=== PATIENT | male | born 1985 | race Caucasian/White ===

== ENCOUNTER 2020-11-24 20:28 | Inpatient (IN) | payer OTHER ==
[2020-11-24 20:39] VITALS: BMI 25.4
[2020-11-24] MEDS ORDERED: SODIUM CHLORIDE 0.9% 500 ML INFUS.BAG IV ONE (21:15)
[2020-11-24] MEDS ORDERED: morphine CARPU-JECT 4 MG/1 ML DISP.SYRIN IVPUSH ONE (21:15)
[2020-11-24] MEDS ORDERED: morphine SULFATE 4 MG/ML VIAL ONE (21:47)
[2020-11-24 22:02] LABS: BASO % 0.3 % (0-2.0); EOS % 2.3 % (0-4.5); HEMATOCRIT 43.3 % (35.4-49); HEMOGLOBIN 15.1 GM/dL (11.7-16.9); LYMPH % 12.8 % (8-40); MCH 29.8 pg (25.7-33.7); MCHC 34.9 g/dl (32.0-35.9); MEAN CELL VOLUME 85.4 fl (80-96); MEAN PLT VOLUME 6.7 fl (7.5-11.1); MONO % 11.1 % (3.8-10.2); NEUT % 73.5 % (42.8-82.8); PLATELET COUNT 398 K/MM3 (134-434); RBC 5.07 M/mm3 (4.00-5.60); RDW 13.1 % (11.9-15.9); WHITE BLOOD COUNT 10.8 K/mm3 (4.0-10.0)
[2020-11-24 22:23] LABS: POTASSIUM 3.6 mmol/L (3.5-5.1)
[2020-11-24 22:29] LABS: ALBUMIN 2.8 g/dl (3.4-5.0); BLOOD UREA NITROGEN 9.4 mg/dL (7-18); CALCIUM 8.7 mg/dL (8.5-10.1)
[2020-11-24 22:33] LABS: CREATININE 0.7 mg/dL (0.55-1.3)
[2020-11-24 22:34] LABS: BILIRUBIN,TOTAL 0.6 mg/dL (0.2-1); TOT PROT 6.5 g/dl (6.4-8.2)
[2020-11-25] MEDS ORDERED: VANCOMYCIN 1,000 MG in DEXTROSE 5%-WATER - 250 ML IVPB ONE (00:30)
[2020-11-25] MEDS ORDERED: PIPERACILLIN/TAZOB 3.375 GM 3.375 GM in DEXTROSE 5%-WATER - 50 ML IVPB ONE (00:30)
[2020-11-25] MEDS ORDERED: PIPERACILLIN/TAZOB 3.375 GM 3.375 GM/50 ML BAG IVPB ONE (00:34)
[2020-11-25] MEDS ORDERED: VANCOMYCIN 1 GRAM (PRE-DOCKED) 1,000 MG/250 ML BAG IVPB ONE (00:34)
[2020-11-25] MEDS ORDERED: morphine CARPU-JECT 4 MG/1 ML DISP.SYRIN IVPUSH PRN ×2 (01:02→21:42)
[2020-11-25] MEDS ORDERED: morphine SULFATE 4 MG/ML VIAL IVPUSH ONE (02:30)
[2020-11-25] MEDS ORDERED: morphine CARPU-JECT 4 MG/1 ML DISP.SYRIN IVPUSH ONE (02:30)
[2020-11-25] MEDS ORDERED: LACTATED RINGERS SOLUTION 1000 ML INFUS.BAG IV ONE ×2 (02:37→03:48)
[2020-11-25] MEDS ORDERED: VANCOMYCIN 1 GM PREMIX - 1 GM/200 ML BAG IVPB SCH (02:45)
[2020-11-25 02:50] LABS: INR 1.25 (0.83-1.09)
[2020-11-25] MEDS ORDERED: morphine SULFATE 4 MG/ML VIAL ONE (02:58)
[2020-11-25] MEDS ORDERED: PIPERACILLIN/TAZOBACTAM 3.375 GM VIAL IVPB ONE (04:06)
[2020-11-25] MEDS ORDERED: DEXTROSE 5%-WATER - 50 ML IVPB ONE (04:06)
[2020-11-25] MEDS: CLINDAMYCIN 600MG PREMIX IVPB 600 MG/50 ML BAG IVPB SCH ×3 (04:50→19:07)
[2020-11-25] MEDS ORDERED: oxyCODONE HCL 5 MG TABLET PO PRN (05:19)
[2020-11-25] MEDS ORDERED: ONDANSETRON 4 MG/2 ML VIAL IVPUSH PRN ×2 (05:19→21:42)
[2020-11-25] MEDS ORDERED: morphine SULFATE/PF 0.5 MG/ML (2cc Syringe - QUVA) ONE (05:33)
[2020-11-25] MEDS ORDERED: MIDAZOLAM HCL 2 MG/2 ML SINGLE DOSE VIAL ONE (05:42)
[2020-11-25] MEDS ORDERED: PROPOFOL 20 ML ONE (06:05)
[2020-11-25 07:44] LABS: URINE APPEARANCE CLEAR; URINE BILIRUBIN NEGATIVE (NEGATIVE); URINE COLOR YELLOW; URINE GLUCOSE (UA) 1+ (NEGATIVE); URINE KETONE 40 mg/dl (NEGATIVE)
[2020-11-25 07:45] LABS: EPI CELLS 15.9 /uL (0-25.1); URINE LEUK ESTERASE NEGATIVE (NEGATIVE); URINE NITRITE NEGATIVE (NEGATIVE); URINE PROTEIN NEGATIVE (NEGATIVE); URINE UROBILINOGEN 0.2 mg/dL (0.2-1.0)
[2020-11-25 07:46] LABS: HYALINE CASTS 0.77 /uL (0-3.1); URINE BACTERIA 54.4 /uL (0-1359)
[2020-11-25] MEDS: INSULIN SLIDING SCALE (NOVOLOG) 1 VIAL SQ SCH ×2 (08:42→16:40)
[2020-11-25] MEDS ORDERED: DEXTROSE 5%-WATER 100 ML IVPB ONE ×4 (09:06→22:16)
[2020-11-25] MEDS ORDERED: PIPERACILLIN/TAZOBACTAM 4.5 GM VIAL IVPB ONE ×4 (09:06→22:16)
[2020-11-25] MEDS ORDERED: MUPIROCIN 2% TOPICAL OINTMENT FOR DECOLONIZATION NS SCH (10:00)
[2020-11-25] MEDS: PIPERACILLIN/TAZOB 4.5 GM 4.5 GM in DEXTROSE 5%-WATER 100 ML IVPB SCH ×3 (10:22→22:22)
[2020-11-25 10:43] LABS: BASO % 0.5 % (0-2.0); EOS % 1.6 % (0-4.5); HEMATOCRIT 41.4 % (35.4-49); HEMOGLOBIN 14.4 GM/dL (11.7-16.9); LYMPH % 9.1 % (8-40); MCH 29.6 pg (25.7-33.7); MCHC 34.8 g/dl (32.0-35.9); MEAN CELL VOLUME 85.1 fl (80-96); MEAN PLT VOLUME 6.7 fl (7.5-11.1); MONO % 10.9 % (3.8-10.2); NEUT % 77.9 % (42.8-82.8); PLATELET COUNT 368 K/MM3 (134-434); RBC 4.86 M/mm3 (4.00-5.60); RDW 12.9 % (11.9-15.9); WHITE BLOOD COUNT 13.5 K/mm3 (4.0-10.0)
[2020-11-25 10:57] LABS: POTASSIUM 3.5 mmol/L (3.5-5.1)
[2020-11-25] MEDS: VANCOMYCIN 1 GRAM (PRE-DOCKED) 1,000 MG/250 ML BAG IVPB SCH ×2 (11:00→22:22)
[2020-11-25 11:01] LABS: ALBUMIN 2.5 g/dl (3.4-5.0); BLOOD UREA NITROGEN 6.1 mg/dL (7-18); CALCIUM 8.3 mg/dL (8.5-10.1)
[2020-11-25 11:04] LABS: CREATININE 0.6 mg/dL (0.55-1.3)
[2020-11-25 11:05] LABS: BILIRUBIN,TOTAL 0.8 mg/dL (0.2-1); TOT PROT 5.9 g/dl (6.4-8.2)
[2020-11-25] MEDS ORDERED: PIPERACILLIN/TAZOB 4.5 GM 4.5 GM in DEXTROSE 5%-WATER 100 ML IVPB SCH (18:30)
[2020-11-25] MEDS ORDERED: CHLORHEXIDINE GLUCONATE 4% CLEANSER FOR DECOLONIZATION TP SCH (22:00)
[2020-11-25] MEDS ORDERED: VANCOMYCIN 1 GRAM (PRE-DOCKED) 1 GM/200 ML BAG IVPB SCH ×2 (23:00)
[2020-11-26] MEDS: PIPERACILLIN/TAZOB 4.5 GM 4.5 GM in DEXTROSE 5%-WATER 100 ML IVPB SCH ×3 (01:00→18:03)
[2020-11-26] MEDS: CLINDAMYCIN 600MG PREMIX IVPB 600 MG/50 ML BAG IVPB SCH ×3 (01:13→18:03)
[2020-11-26] MEDS ORDERED: VANCOMYCIN 1 GM PREMIX - 1 GM/200 ML BAG IVPB SCH (01:30)
[2020-11-26] MEDS: oxyCODONE HCL 5 MG TABLET PO PRN ×3 (03:08→14:14)
[2020-11-26 06:43] LABS: BASO % 0.4 % (0-2.0); EOS % 3.4 % (0-4.5); HEMATOCRIT 40.9 % (35.4-49); HEMOGLOBIN 14.1 GM/dL (11.7-16.9); LYMPH % 19.7 % (8-40); MCH 29.8 pg (25.7-33.7); MCHC 34.6 g/dl (32.0-35.9); MEAN CELL VOLUME 86.3 fl (80-96); MEAN PLT VOLUME 6.5 fl (7.5-11.1); MONO % 12.6 % (3.8-10.2); NEUT % 63.9 % (42.8-82.8); PLATELET COUNT 356 K/MM3 (134-434); RBC 4.74 M/mm3 (4.00-5.60); RDW 12.7 % (11.9-15.9); WHITE BLOOD COUNT 8.6 K/mm3 (4.0-10.0)
[2020-11-26] MEDS ORDERED: INSULIN SLIDING SCALE (NOVOLOG) 1 VIAL SQ SCH (07:00)
[2020-11-26 07:01] LABS: POTASSIUM 3.6 mmol/L (3.5-5.1)
[2020-11-26 07:04] LABS: ALBUMIN 2.4 g/dl (3.4-5.0); BLOOD UREA NITROGEN 7.2 mg/dL (7-18); CALCIUM 8.3 mg/dL (8.5-10.1); MAGNESIUM 2.1 mg/dL (1.8-2.4)
[2020-11-26 07:07] LABS: CREATININE 0.8 mg/dL (0.55-1.3); PHOSPHOROUS 4.8 mg/dL (2.5-4.9)
[2020-11-26 07:08] LABS: BILIRUBIN,TOTAL 1.2 mg/dL (0.2-1)
[2020-11-26 07:09] LABS: TOT PROT 5.7 g/dl (6.4-8.2)
[2020-11-26] MEDS ORDERED: PIPERACILLIN/TAZOBACTAM 4.5 GM VIAL IVPB ONE ×2 (09:19→17:25)
[2020-11-26] MEDS ORDERED: DEXTROSE 5%-WATER 100 ML IVPB ONE ×2 (09:19→17:25)
[2020-11-26] MEDS: morphine SULFATE 4 MG/ML VIAL IVPUSH PRN (10:55)
[2020-11-26] MEDS: VANCOMYCIN 1 GRAM (PRE-DOCKED) 1,000 MG/250 ML BAG IVPB SCH (11:29)
[2020-11-26] MEDS: INSULIN SLIDING SCALE (NOVOLOG) 1 VIAL SQ SCH (16:36)
[2020-11-26] MEDS ORDERED: ENOXAPARIN NA (PORCINE) 40 MG/0.4 ML DISP.SYRIN SQ SCH (17:45)
[2020-11-27] MEDS ORDERED: PIPERACILLIN/TAZOBACTAM 4.5 GM VIAL IVPB ONE ×3 (00:55→17:43)
[2020-11-27] MEDS ORDERED: DEXTROSE 5%-WATER 100 ML IVPB ONE ×3 (00:56→17:43)
[2020-11-27] MEDS: VANCOMYCIN 1 GRAM (PRE-DOCKED) 1,000 MG/250 ML BAG IVPB SCH (00:59)
[2020-11-27] MEDS: PIPERACILLIN/TAZOB 4.5 GM 4.5 GM in DEXTROSE 5%-WATER 100 ML IVPB SCH ×2 (01:02→09:02)
[2020-11-27] MEDS: CLINDAMYCIN 600MG PREMIX IVPB 600 MG/50 ML BAG IVPB SCH ×3 (01:44→18:00)
[2020-11-27] MEDS: INSULIN SLIDING SCALE (NOVOLOG) 1 VIAL SQ SCH ×2 (06:24→18:00)
[2020-11-27 07:12] LABS: BASO % 0.4 % (0-2.0); EOS % 1.7 % (0-4.5); HEMATOCRIT 41.3 % (35.4-49); HEMOGLOBIN 14.1 GM/dL (11.7-16.9); LYMPH % 8.2 % (8-40); MCH 29.3 pg (25.7-33.7); MCHC 34.2 g/dl (32.0-35.9); MEAN CELL VOLUME 85.8 fl (80-96); MEAN PLT VOLUME 6.8 fl (7.5-11.1); NEUT % 80.7 % (42.8-82.8); PLATELET COUNT 324 K/MM3 (134-434); RBC 4.82 M/mm3 (4.00-5.60); RDW 12.9 % (11.9-15.9); WHITE BLOOD COUNT 14.2 K/mm3 (4.0-10.0)
[2020-11-27 07:23] LABS: POTASSIUM 3.8 mmol/L (3.5-5.1)
[2020-11-27 07:28] LABS: CALCIUM 8.6 mg/dL (8.5-10.1)
[2020-11-27 07:29] LABS: BLOOD UREA NITROGEN 25.3 mg/dL (7-18)
[2020-11-27 07:32] LABS: CREATININE 4.3 mg/dL (0.55-1.3)
[2020-11-27] MEDS: MUPIROCIN 2% TOPICAL OINTMENT FOR DECOLONIZATION NS SCH ×2 (07:43→07:44)
[2020-11-27] MEDS: CHLORHEXIDINE GLUCONATE 4% CLEANSER FOR DECOLONIZATION TP SCH ×2 (07:43→07:44)
[2020-11-27] MEDS ORDERED: SODIUM CHLORIDE 1,000 ML IV SCH ×2 (09:00→11:56)
[2020-11-27] MEDS: HEPARIN NA (PORCINE) 5,000 UNITS/ML 1ML VIAL SQ SCH ×3 (11:05→21:31)
[2020-11-27 15:26] LABS: POTASSIUM 3.8 mmol/L (3.5-5.1)
[2020-11-27 15:28] LABS: BLOOD UREA NITROGEN 26.3 mg/dL (7-18); CALCIUM 8.1 mg/dL (8.5-10.1)
[2020-11-27 15:32] LABS: CREATININE 4.7 mg/dL (0.55-1.3)
[2020-11-27] MEDS ORDERED: SODIUM CHLORIDE 250 ML IV STA (15:36)
[2020-11-27 17:13] LABS: EPI CELLS 19 /uL (0-25.1); HYALINE CASTS 0 /uL (0-3.1); PH,URINE 6.5 (5.0-8.0); URINE APPEARANCE CLEAR; URINE BACTERIA 229 /uL (0-1359); URINE BILIRUBIN NEGATIVE (NEGATIVE); URINE COLOR YELLOW; URINE GLUCOSE (UA) 2+ (NEGATIVE); URINE KETONE NEGATIVE (NEGATIVE); URINE LEUK ESTERASE NEGATIVE (NEGATIVE); URINE NITRITE NEGATIVE (NEGATIVE); URINE PROTEIN TRACE (NEGATIVE); URINE RBC 22 /uL (0-23.9); URINE UROBILINOGEN 0.2 mg/dL (0.2-1.0); URINE WBC 15 /uL (0-25.8)
[2020-11-27] MEDS: PIPERACILLIN/TAZOB 4.5 GM 2.25 GM in DEXTROSE 5%-WATER 100 ML IVPB SCH (18:01)
[2020-11-27] MEDS: oxyCODONE HCL 5 MG TABLET PO PRN (18:06)
[2020-11-27] MEDS: SODIUM CHLORIDE 1,000 ML IV SCH (18:06)
[2020-11-28] MEDS ORDERED: DEXTROSE 5%-WATER 100 ML IVPB ONE ×3 (01:51→15:24)
[2020-11-28] MEDS ORDERED: PIPERACILLIN/TAZOBACTAM 4.5 GM VIAL IVPB ONE ×3 (01:51→15:24)
[2020-11-28] MEDS: PIPERACILLIN/TAZOB 4.5 GM 2.25 GM in DEXTROSE 5%-WATER 100 ML IVPB SCH ×3 (01:56→17:57)
[2020-11-28] MEDS: CLINDAMYCIN 600MG PREMIX IVPB 600 MG/50 ML BAG IVPB SCH ×3 (03:05→17:04)
[2020-11-28] MEDS: INSULIN SLIDING SCALE (NOVOLOG) 1 VIAL SQ SCH ×2 (06:04→16:22)
[2020-11-28] MEDS: HEPARIN NA (PORCINE) 5,000 UNITS/ML 1ML VIAL SQ SCH ×3 (06:04→21:51)
[2020-11-28] MEDS: SODIUM CHLORIDE 1,000 ML IV SCH (06:23)
[2020-11-28 10:00] LABS: BASO % 0.5 % (0-2.0); EOS % 1.6 % (0-4.5); HEMATOCRIT 40.5 % (35.4-49); HEMOGLOBIN 14.1 GM/dL (11.7-16.9); LYMPH % 9.3 % (8-40); MCH 29.8 pg (25.7-33.7); MCHC 34.9 g/dl (32.0-35.9); MEAN CELL VOLUME 85.6 fl (80-96); MEAN PLT VOLUME 6.8 fl (7.5-11.1); MONO % 8.1 % (3.8-10.2); NEUT % 80.5 % (42.8-82.8); PLATELET COUNT 332 K/MM3 (134-434); RBC 4.74 M/mm3 (4.00-5.60); RDW 12.9 % (11.9-15.9); WHITE BLOOD COUNT 12.6 K/mm3 (4.0-10.0)
[2020-11-28 10:26] LABS: POTASSIUM 3.9 mmol/L (3.5-5.1)
[2020-11-28 10:34] LABS: CALCIUM 8.6 mg/dL (8.5-10.1)
[2020-11-28 10:36] LABS: ALBUMIN 2.3 g/dl (3.4-5.0); BLOOD UREA NITROGEN 29.5 mg/dL (7-18); MAGNESIUM 2.5 mg/dL (1.8-2.4)
[2020-11-28 10:38] LABS: CREATININE 5.8 mg/dL (0.55-1.3)
[2020-11-28 10:39] LABS: PHOSPHOROUS 5.9 mg/dL (2.5-4.9)
[2020-11-28 10:40] LABS: BILIRUBIN,TOTAL 1.2 mg/dL (0.2-1); TOT PROT 5.9 g/dl (6.4-8.2)
[2020-11-28] MEDS: INSULIN (LEVEMIR) 100 UNITS/ML UNITS SQ SCH (11:14)
[2020-11-28] MEDS: SODIUM CHLORIDE 0.45% 1,000 ML IV SCH (15:19)
[2020-11-28] MEDS: oxyCODONE HCL 5 MG TABLET PO PRN (15:27)
[2020-11-28] MEDS ORDERED: INSULIN (LEVEMIR) 100 UNITS/ML UNITS SQ ONE (18:48)
[2020-11-29] MEDS: morphine SULFATE 4 MG/ML VIAL IVPUSH PRN (02:00)
[2020-11-29] MEDS: CLINDAMYCIN 600MG PREMIX IVPB 600 MG/50 ML BAG IVPB SCH ×3 (02:00→17:11)
[2020-11-29] MEDS ORDERED: DEXTROSE 5%-WATER 100 ML IVPB ONE ×3 (02:21→14:48)
[2020-11-29] MEDS ORDERED: PIPERACILLIN/TAZOBACTAM 4.5 GM VIAL IVPB ONE ×3 (02:21→14:48)
[2020-11-29] MEDS: SODIUM CHLORIDE 0.45% 1,000 ML IV SCH ×2 (02:46→14:55)
[2020-11-29] MEDS: PIPERACILLIN/TAZOB 4.5 GM 2.25 GM in DEXTROSE 5%-WATER 100 ML IVPB SCH ×3 (02:46→18:05)
[2020-11-29] MEDS: HEPARIN NA (PORCINE) 5,000 UNITS/ML 1ML VIAL SQ SCH ×3 (06:02→21:01)
[2020-11-29] MEDS: INSULIN SLIDING SCALE (NOVOLOG) 1 VIAL SQ SCH ×2 (06:03→16:19)
[2020-11-29] MEDS: INSULIN (LEVEMIR) 100 UNITS/ML UNITS SQ SCH ×2 (06:03→21:02)
[2020-11-29 06:33] LABS: BASO % 0.3 % (0-2.0); EOS % 2.2 % (0-4.5); HEMATOCRIT 38.2 % (35.4-49); HEMOGLOBIN 13.2 GM/dL (11.7-16.9); LYMPH % 11.1 % (8-40); MCH 29.7 pg (25.7-33.7); MCHC 34.5 g/dl (32.0-35.9); MEAN CELL VOLUME 86.2 fl (80-96); MEAN PLT VOLUME 6.9 fl (7.5-11.1); MONO % 7.1 % (3.8-10.2); NEUT % 79.3 % (42.8-82.8); PLATELET COUNT 296 K/MM3 (134-434); RBC 4.43 M/mm3 (4.00-5.60); RDW 13.1 % (11.9-15.9); WHITE BLOOD COUNT 11.5 K/mm3 (4.0-10.0)
[2020-11-29] MEDS ORDERED: INSULIN (NOVOLOG) ASPART 100 UNITS/ML 10ML VIAL ONE (06:45)
[2020-11-29 06:46] LABS: POTASSIUM 3.9 mmol/L (3.5-5.1)
[2020-11-29 06:48] LABS: CALCIUM 7.9 mg/dL (8.5-10.1)
[2020-11-29 06:50] LABS: ALBUMIN 2.1 g/dl (3.4-5.0); BLOOD UREA NITROGEN 31.4 mg/dL (7-18); MAGNESIUM 2.2 mg/dL (1.8-2.4)
[2020-11-29 06:53] LABS: BILIRUBIN,TOTAL 0.6 mg/dL (0.2-1); CREATININE 6.4 mg/dL (0.55-1.3); PHOSPHOROUS 7.2 mg/dL (2.5-4.9); TOT PROT 5.5 g/dl (6.4-8.2)
[2020-11-29] MEDS: SEVELAMER CARBONATE 800 MG TAB (FP) PO SCH (16:45)
[2020-11-29 19:08] LABS: HEP B CORE AB, TOT Negative (Negative)
[2020-11-30] MEDS: CLINDAMYCIN 600MG PREMIX IVPB 600 MG/50 ML BAG IVPB SCH ×2 (01:11→09:12)
[2020-11-30] MEDS ORDERED: PIPERACILLIN/TAZOBACTAM 4.5 GM VIAL IVPB ONE (01:56)
[2020-11-30] MEDS ORDERED: DEXTROSE 5%-WATER 100 ML IVPB ONE (01:56)
[2020-11-30] MEDS: PIPERACILLIN/TAZOB 4.5 GM 2.25 GM in DEXTROSE 5%-WATER 100 ML IVPB SCH (02:00)
[2020-11-30] MEDS: SODIUM CHLORIDE 0.45% 1,000 ML IV SCH ×2 (04:46→16:19)
[2020-11-30] MEDS: HEPARIN NA (PORCINE) 5,000 UNITS/ML 1ML VIAL SQ SCH ×3 (05:54→21:06)
[2020-11-30] MEDS: INSULIN SLIDING SCALE (NOVOLOG) 1 VIAL SQ SCH ×2 (06:01→16:23)
[2020-11-30] MEDS: INSULIN (LEVEMIR) 100 UNITS/ML UNITS SQ SCH ×2 (06:01→21:07)
[2020-11-30 07:00] LABS: POTASSIUM 3.8 mmol/L (3.5-5.1)
[2020-11-30 07:02] LABS: ALBUMIN 2.3 g/dl (3.4-5.0); CALCIUM 8.3 mg/dL (8.5-10.1)
[2020-11-30 07:03] LABS: BLOOD UREA NITROGEN 33.4 mg/dL (7-18); MAGNESIUM 2.2 mg/dL (1.8-2.4)
[2020-11-30 07:06] LABS: CHOLESTEROL 118 mg/dL (50-200); CREATININE 6.7 mg/dL (0.55-1.3); PHOSPHOROUS 6.8 mg/dL (2.5-4.9); TRIGLYCERIDES 148 mg/dL (0-150)
[2020-11-30 07:07] LABS: BILIRUBIN,TOTAL 0.7 mg/dL (0.2-1); LDL CHOLESTEROL (ONLY SJRH) 61 mg/dL (5-100); TOT PROT 5.9 g/dl (6.4-8.2)
[2020-11-30 07:08] LABS: HDL CHOLESTEROL 39 mg/dL (40-60)
[2020-11-30 07:19] LABS: HEMATOCRIT 40.4 % (35.4-49); HEMOGLOBIN 14.1 GM/dL (11.7-16.9); MCH 29.8 pg (25.7-33.7); MCHC 34.8 g/dl (32.0-35.9); MEAN CELL VOLUME 85.6 fl (80-96); MEAN PLT VOLUME 6.8 fl (7.5-11.1); PLATELET COUNT 322 K/MM3 (134-434); RBC 4.72 M/mm3 (4.00-5.60); RDW 12.9 % (11.9-15.9); WHITE BLOOD COUNT 11.7 K/mm3 (4.0-10.0)
[2020-11-30] MEDS: SEVELAMER CARBONATE 800 MG TAB (FP) PO SCH ×3 (09:13→18:02)
[2020-11-30] MEDS ORDERED: DEXTROSE 5%-WATER - 50 ML IVPB ONE ×2 (10:41→17:57)
[2020-11-30] MEDS ORDERED: PIPERACILLIN/TAZOBACTAM 2.25 GM VIAL IVPB ONE ×2 (10:41→17:57)
[2020-11-30] MEDS: PIPERACILLIN/TAZOB 2.25 GM 2.25 GM in DEXTROSE 5%-WATER - 50 ML IVPB SCH ×2 (10:43→18:02)
[2020-11-30 17:07] LABS: ATYPICAL pANCA <1:20 titer (Neg:<1:20); C-ANCA <1:20 titer (Neg:<1:20)
[2020-12-01] MEDS ORDERED: DEXTROSE 5%-WATER - 50 ML IVPB ONE ×3 (01:29→17:10)
[2020-12-01] MEDS ORDERED: PIPERACILLIN/TAZOBACTAM 2.25 GM VIAL IVPB ONE ×4 (01:29→17:23)
[2020-12-01] MEDS: PIPERACILLIN/TAZOB 2.25 GM 2.25 GM in DEXTROSE 5%-WATER - 50 ML IVPB SCH ×3 (02:31→18:45)
[2020-12-01] MEDS: INSULIN SLIDING SCALE (NOVOLOG) 1 VIAL SQ SCH ×2 (06:14→17:09)
[2020-12-01] MEDS: INSULIN (LEVEMIR) 100 UNITS/ML UNITS SQ SCH ×2 (06:14→21:46)
[2020-12-01] MEDS: HEPARIN NA (PORCINE) 5,000 UNITS/ML 1ML VIAL SQ SCH ×3 (06:14→21:46)
[2020-12-01] MEDS: SODIUM CHLORIDE 0.45% 1,000 ML IV SCH ×2 (06:15→21:28)
[2020-12-01 08:18] LABS: HEMATOCRIT 38.7 % (35.4-49); HEMOGLOBIN 13.5 GM/dL (11.7-16.9); MCH 29.7 pg (25.7-33.7); MEAN CELL VOLUME 84.9 fl (80-96); MEAN PLT VOLUME 6.9 fl (7.5-11.1); PLATELET COUNT 309 K/MM3 (134-434); RBC 4.56 M/mm3 (4.00-5.60); RDW 13.1 % (11.9-15.9); WHITE BLOOD COUNT 10.9 K/mm3 (4.0-10.0)
[2020-12-01] MEDS: SEVELAMER CARBONATE 800 MG TAB (FP) PO SCH ×3 (09:54→17:10)
[2020-12-01 12:03] LABS: CALCIUM 8.6 mg/dL (8.5-10.1)
[2020-12-01 12:04] LABS: BLOOD UREA NITROGEN 41.6 mg/dL (7-18)
[2020-12-01 12:07] LABS: CREATININE 7.2 mg/dL (0.55-1.3)
[2020-12-01 13:23] LABS: PHOSPHOROUS 6.1 mg/dL (2.5-4.9)
[2020-12-02] MEDS ORDERED: PIPERACILLIN/TAZOBACTAM 2.25 GM VIAL IVPB ONE ×2 (01:06→08:46)
[2020-12-02] MEDS ORDERED: DEXTROSE 5%-WATER - 50 ML IVPB ONE ×2 (01:06→08:47)
[2020-12-02] MEDS: PIPERACILLIN/TAZOB 2.25 GM 2.25 GM in DEXTROSE 5%-WATER - 50 ML IVPB SCH ×2 (01:10→10:21)
[2020-12-02] MEDS: INSULIN SLIDING SCALE (NOVOLOG) 1 VIAL SQ SCH ×2 (06:24→17:18)
[2020-12-02] MEDS: INSULIN (LEVEMIR) 100 UNITS/ML UNITS SQ SCH ×2 (06:25→22:06)
[2020-12-02] MEDS: HEPARIN NA (PORCINE) 5,000 UNITS/ML 1ML VIAL SQ SCH ×3 (06:27→22:07)
[2020-12-02 09:05] LABS: HEMATOCRIT 37.8 % (35.4-49); HEMOGLOBIN 12.9 GM/dL (11.7-16.9); MCH 29.3 pg (25.7-33.7); MCHC 34.2 g/dl (32.0-35.9); MEAN CELL VOLUME 85.7 fl (80-96); MEAN PLT VOLUME 7.2 fl (7.5-11.1); PLATELET COUNT 307 K/MM3 (134-434); RBC 4.42 M/mm3 (4.00-5.60); RDW 12.9 % (11.9-15.9); WHITE BLOOD COUNT 11.1 K/mm3 (4.0-10.0)
[2020-12-02 09:25] LABS: POTASSIUM 4.3 mmol/L (3.5-5.1)
[2020-12-02 09:27] LABS: CALCIUM 8.5 mg/dL (8.5-10.1)
[2020-12-02 09:35] LABS: CREATININE 7.4 mg/dL (0.55-1.3)
[2020-12-02] MEDS: SEVELAMER CARBONATE 800 MG TAB (FP) PO SCH ×3 (10:20→18:08)
[2020-12-02] MEDS: SODIUM CHLORIDE 0.45% 1,000 ML IV SCH (16:52)
[2020-12-02] MEDS: AMOX TR/POT CLAV 250MG/125MG TABLETS PO SCH (18:03)
[2020-12-03] MEDS: INSULIN (LEVEMIR) 100 UNITS/ML UNITS SQ SCH ×2 (06:00→22:15)
[2020-12-03] MEDS: HEPARIN NA (PORCINE) 5,000 UNITS/ML 1ML VIAL SQ SCH ×3 (06:00→22:15)
[2020-12-03] MEDS: INSULIN SLIDING SCALE (NOVOLOG) 1 VIAL SQ SCH ×2 (06:21→16:36)
[2020-12-03] MEDS ORDERED: PT OWN MED DRAWER 7, Y5N ONE (08:23)
[2020-12-03 08:32] LABS: HEMATOCRIT 37.4 % (35.4-49); HEMOGLOBIN 13.1 GM/dL (11.7-16.9); MCH 29.5 pg (25.7-33.7); MEAN CELL VOLUME 84.1 fl (80-96); MEAN PLT VOLUME 7.2 fl (7.5-11.1); PLATELET COUNT 309 K/MM3 (134-434); RBC 4.45 M/mm3 (4.00-5.60); RDW 13.5 % (11.9-15.9); WHITE BLOOD COUNT 11.2 K/mm3 (4.0-10.0)
[2020-12-03 08:38] LABS: POTASSIUM 4.1 mmol/L (3.5-5.1)
[2020-12-03 08:43] LABS: BLOOD UREA NITROGEN 48.3 mg/dL (7-18)
[2020-12-03 08:45] LABS: CALCIUM 8.4 mg/dL (8.5-10.1)
[2020-12-03 08:46] LABS: CREATININE 7.2 mg/dL (0.55-1.3)
[2020-12-03] MEDS: AMOX TR/POT CLAV 250MG/125MG TABLETS PO SCH ×2 (08:46→16:36)
[2020-12-03] MEDS: SEVELAMER CARBONATE 800 MG TAB (FP) PO SCH ×3 (08:47→16:36)
[2020-12-03] MEDS: SODIUM CHLORIDE 0.45% 1,000 ML IV SCH (15:09)
[2020-12-04] MEDS: INSULIN (LEVEMIR) 100 UNITS/ML UNITS SQ SCH ×2 (06:07→21:50)
[2020-12-04] MEDS: HEPARIN NA (PORCINE) 5,000 UNITS/ML 1ML VIAL SQ SCH ×3 (06:07→21:51)
[2020-12-04] MEDS: INSULIN SLIDING SCALE (NOVOLOG) 1 VIAL SQ SCH ×2 (06:08→16:50)
[2020-12-04 07:43] LABS: BASO % 0.4 % (0-2.0); EOS % 3.3 % (0-4.5); HEMATOCRIT 38.5 % (35.4-49); HEMOGLOBIN 13.5 GM/dL (11.7-16.9); LYMPH % 14.5 % (8-40); MCH 29.9 pg (25.7-33.7); MCHC 35.1 g/dl (32.0-35.9); MEAN CELL VOLUME 85.1 fl (80-96); NEUT % 73.8 % (42.8-82.8); PLATELET COUNT 337 K/MM3 (134-434); RBC 4.53 M/mm3 (4.00-5.60); RDW 13.4 % (11.9-15.9); WHITE BLOOD COUNT 10.7 K/mm3 (4.0-10.0)
[2020-12-04 07:53] LABS: POTASSIUM 4.3 mmol/L (3.5-5.1)
[2020-12-04 07:56] LABS: BLOOD UREA NITROGEN 48.8 mg/dL (7-18); CALCIUM 8.7 mg/dL (8.5-10.1); MAGNESIUM 2.5 mg/dL (1.8-2.4)
[2020-12-04 08:00] LABS: PHOSPHOROUS 5.6 mg/dL (2.5-4.9)
[2020-12-04] MEDS ORDERED: PT OWN MED DRAWER 7, Y5N ONE (08:23)
[2020-12-04] MEDS: SEVELAMER CARBONATE 800 MG TAB (FP) PO SCH ×3 (08:33→16:54)
[2020-12-04] MEDS: AMOX TR/POT CLAV 250MG/125MG TABLETS PO SCH ×2 (08:50→16:54)
[2020-12-04] MEDS: SODIUM CHLORIDE 0.45% 1,000 ML IV SCH ×3 (11:59→21:48)
[2020-12-05] MEDS: HEPARIN NA (PORCINE) 5,000 UNITS/ML 1ML VIAL SQ SCH ×3 (06:17→22:09)
[2020-12-05] MEDS: INSULIN (LEVEMIR) 100 UNITS/ML UNITS SQ SCH ×2 (06:17→22:09)
[2020-12-05] MEDS: INSULIN SLIDING SCALE (NOVOLOG) 1 VIAL SQ SCH ×2 (06:20→19:12)
[2020-12-05 08:41] LABS: BASO % 0.7 % (0-2.0); EOS % 3.7 % (0-4.5); HEMATOCRIT 37.4 % (35.4-49); HEMOGLOBIN 12.7 GM/dL (11.7-16.9); LYMPH % 12.3 % (8-40); MCH 29.5 pg (25.7-33.7); MEAN CELL VOLUME 86.7 fl (80-96); MEAN PLT VOLUME 7.2 fl (7.5-11.1); MONO % 7.7 % (3.8-10.2); NEUT % 75.6 % (42.8-82.8); PLATELET COUNT 329 K/MM3 (134-434); RBC 4.32 M/mm3 (4.00-5.60); RDW 13.2 % (11.9-15.9); WHITE BLOOD COUNT 10.7 K/mm3 (4.0-10.0)
[2020-12-05] MEDS ORDERED: PT OWN MED DRAWER 7, Y5N ONE (08:57)
[2020-12-05 09:04] LABS: POTASSIUM 4.4 mmol/L (3.5-5.1)
[2020-12-05 09:06] LABS: CALCIUM 8.8 mg/dL (8.5-10.1)
[2020-12-05 09:07] LABS: ALBUMIN 2.6 g/dl (3.4-5.0); MAGNESIUM 2.3 mg/dL (1.8-2.4)
[2020-12-05 09:10] LABS: CREATININE 6.2 mg/dL (0.55-1.3); PHOSPHOROUS 5.4 mg/dL (2.5-4.9)
[2020-12-05 09:11] LABS: BILIRUBIN,TOTAL 0.5 mg/dL (0.2-1)
[2020-12-05 09:12] LABS: TOT PROT 6.2 g/dl (6.4-8.2)
[2020-12-05] MEDS: AMOX TR/POT CLAV 250MG/125MG TABLETS PO SCH (09:18)
[2020-12-05] MEDS: SODIUM CHLORIDE 0.45% 1,000 ML IV SCH ×2 (09:18→19:12)
[2020-12-05] MEDS: SEVELAMER CARBONATE 800 MG TAB (FP) PO SCH ×2 (09:18→13:18)
[2020-12-06] MEDS: SODIUM CHLORIDE 0.45% 1,000 ML IV SCH ×2 (01:36→17:27)
[2020-12-06] MEDS: HEPARIN NA (PORCINE) 5,000 UNITS/ML 1ML VIAL SQ SCH ×2 (06:25→13:22)
[2020-12-06] MEDS: INSULIN (LEVEMIR) 100 UNITS/ML UNITS SQ SCH (06:25)
[2020-12-06] MEDS: INSULIN SLIDING SCALE (NOVOLOG) 1 VIAL SQ SCH ×2 (06:27→18:22)
[2020-12-06 08:13] LABS: BASO % 0.8 % (0-2.0); EOS % 4.8 % (0-4.5); HEMATOCRIT 37.1 % (35.4-49); HEMOGLOBIN 12.8 GM/dL (11.7-16.9); MCH 29.7 pg (25.7-33.7); MCHC 34.4 g/dl (32.0-35.9); MEAN CELL VOLUME 86.2 fl (80-96); MEAN PLT VOLUME 7.1 fl (7.5-11.1); MONO % 8.5 % (3.8-10.2); NEUT % 73.9 % (42.8-82.8); PLATELET COUNT 343 K/MM3 (134-434); RDW 13.4 % (11.9-15.9); WHITE BLOOD COUNT 9.9 K/mm3 (4.0-10.0)
[2020-12-06 08:56] LABS: POTASSIUM 4.3 mmol/L (3.5-5.1)
[2020-12-06 09:06] LABS: ALBUMIN 2.8 g/dl (3.4-5.0); BLOOD UREA NITROGEN 46.6 mg/dL (7-18); MAGNESIUM 2.4 mg/dL (1.8-2.4)
[2020-12-06 09:09] LABS: CREATININE 5.7 mg/dL (0.55-1.3); PHOSPHOROUS 5.9 mg/dL (2.5-4.9)
[2020-12-06 09:10] LABS: BILIRUBIN,TOTAL 0.9 mg/dL (0.2-1)
[2020-12-06 09:11] LABS: TOT PROT 6.5 g/dl (6.4-8.2)
[2020-12-06] MEDS: SEVELAMER CARBONATE 800 MG TAB (FP) PO SCH ×2 (13:22→18:45)
[2020-12-06 15:01] VITALS: BP 141/96; PULSE 77; TEMP 98.3
== END 2020-12-06 19:57 | disposition home health service (06) | DRG 356 ==
LOC: JER 20:28 → JERBED 11-25 02:33 → JICU 11-25 03:51 → J7W 11-25 21:41
PROVIDERS: ADMIT Internal Medicine Pulmonary Disease; ATTEND Internal Medicine
PROC: 0J9B0ZZ Drainage of Perineum Subcutaneous Tissue and Fascia, Open Approach (ICD-10-PCS; principal; 2020-11-25 05:00)
DX: K61.39 Other ischiorectal abscess (principal); N17.0 Acute kidney failure with tubular necrosis; N49.3 Fournier gangrene; E11.65 Type 2 diabetes mellitus with hyperglycemia; D72.829 Elevated white blood cell count, unspecified; N14.1 Nephropathy induced by other drugs, medicaments and biological substances; T50.8X5A Adverse effect of diagnostic agents, initial encounter; R74.01 Elevation of levels of liver transaminase levels; E83.39 Other disorders of phosphorus metabolism
CPT/HCPCS: 36415; 72192-TC; 74018-TC-FY; 74177-TC; 76775-TC; 80048; 80053; 80061; 81003; 82436; 82550; 82565; 82962; 83036; 83516; 83520; 83721; 83735; 84100; 84133; 84300; 85025; 85027; 85610; 85651; 86038; 86140; 86160; 86225; 86256; 86704; 86706; 86707; 86708; 86709; 86780; 86850; 86900; 86901; 87040; 87070; 87076; 87086; 87186; 87205; 87340; 87389; 87491; 87522; 87591; 93005; 93010; 99285-25; C9803; G0480; J1644; Q9967; U0003

== ENCOUNTER 2024-04-09 17:16 | Emergency (ER) | payer OTHER ==
[2024-04-09 17:45] VITALS: BP 139/99; PULSE 93; RESP 18; TEMP 98.4; BMI 29.7
== END 2024-04-09 18:13 | disposition home or self-care (01) ==
LOC: JER 17:16 → JERFT 17:16 → JER 18:13
DX: S81.851A Open bite, right lower leg, initial encounter (principal); W54.0XXA Bitten by dog, initial encounter
CPT/HCPCS: 99283-25